=== PATIENT | male | born 1980 | race Caucasian/White ===

== ENCOUNTER → 2020-03-06 10:26 | Outpatient (CLI) | payer OTHER, SELFPAY ==
[2020-03-07 01:51] LABS: COVID19 Sendout Not Detected (Not Detect)
== END ==
PROVIDERS: Visit Provider Physician Assistant
DX: Z11.59 Encounter for screening for other viral diseases (principal); Z01.818 Encounter for other preprocedural examination
CPT/HCPCS: 87635